=== PATIENT | female | born 1975 | race Caucasian/White ===

== ENCOUNTER 2021-11-03 12:24 | Emergency (ER) | payer BC, SELFPAY ==
--- NOTE | ~2021-11-03 | XR_ITS ---
EXAMINATION: XR chest 2V DATE: 11/03/2021 13:23 INDICATION: Left chest pain. TECHNIQUE: Frontal and lateral views of the chest were obtained. COMPARISON: None. FINDINGS: The chest demonstrates clear lungs without pneumonia, pleural effusion, or pneumothorax. Th e heart size is normal. Breast implants are noted. IMPRESSION: 1. No acute cardiopulmonary disease. Reviewed, dictated and finalized at location B.
[2021-11-03 12:46] VITALS: BP 125/89; PULSE 73; RESP 18; TEMP 36.8; O2SAT 100
--- NOTE | 2021-11-03 12:50 | ECG_ITS ---
Measurements Intervals [place] Rate: 70 P: 52 [place]: 137 QRS: 50 QRSD: 71 T: 51 QT: 383 QTc: 414 Interpretive Statements SINUS RHYTHM WITH SINUS ARRHYTHMIA BASELINE ARTIFACT POOR R-WAVE PROGRESSION BORDERLINE ECG NO PREVIOUS ECG AVAILABLE FOR COMPARISON Electronically Signed On 11-03-2021 15:01:34 CDT by Fredrick Noe M.D.
[2021-11-03 13:01] VITALS: BP 125/97; PULSE 73; RESP 17; O2SAT 100
[2021-11-03 13:16] LABS: Basophils Percent Auto 0.3 % (0.2-1.2); Eosinophils Percent Auto 0.5 % (0-4.4); Hematocrit 35.9 % (37.0-47.0); Hemoglobin 11.4 g/dL (12.0-15.0); Immature Granulocyte Absolute 0.01 K/mm3 (0.00-0.031); Immature Granulocyte Percent A 0.1 % (0-0.5); Lymphocytes Percent Auto 28.4 % (18.3-44.2); Mean Corpuscular HGB Conc 31.8 g/dl (32-36); Mean Corpuscular Hemoglobin 31.8 pg (26-34); Mean Platelet Volume 9.3 fl (7.4-10.4); Monocytes Absolute Auto 0.6 K/mm3 (0.1-0.6); Monocytes Percent Auto 7.5 % (2.6-8.5); Neutrophils Absolute Auto 4.9 K/mm3 (1.3-6.7); Neutrophils Percent Auto 63.2 % (45.5-73.1); Platelet Count Result 317 k/mm3 (150-375); Red Blood Count 3.59 M/mm3 (4.2-5.4); Red Cell Distribution Width 12.3 % (11.5-14.5); White Blood Count 7.8 K/mm3 (4.5-10.0)
[2021-11-03 13:27] LABS: Prothrombin Time 12.5 Seconds (11.1-14.7)
[2021-11-03 13:28] LABS: Alanine Aminotransferase 34 U/L (4-35); Albumin Level 4.4 g/dL (3.5-5.1); Alkaline Phosphatase 44 U/L (38-126); Anion Gap 7 mmol/L (8-16); Aspartate Amino Transferase 31 U/L (14-36); Bilirubin,Total 0.3 mg/dL (0.2-1.3); Blood Urea Nitrogen 13 mg/dL (7-17); Calcium 9.1 mg/dL (8.4-10.2); Carbon Dioxide 28 mmol/L (22-30); Chloride 102 mmol/L (98-107); Estimated Glomerular Filt Rate > 60; Glucose 86 mg/dL (65-110); Lipase 56 U/L (23-300); Partial Thromboplastin Time 26.2 SECONDS (22.3-36.8); Potassium 3.6 mmol/L (3.4-5.0); Sodium 137 mmol/L (137-145)
[2021-11-03 13:30] LABS: D Dimer 0.35 ug/mL (<0.48)
--- NOTE | 2021-11-03 13:32 | ED.CHESTPAIN ---
HPI - Chest Pain General Chief Complaint: Chest Pain Stated Complaint: chest tightness and dizziness Time Seen by Provider: 11/03/21 12:51 Source: patient History of Present Illness HPI narrative: Patient presents with chest pain and tightness. Reports she was recently diagnosed with COVID approximately 2 years ago she had repeat testing which was negative but she feels like she never really recovered. Reports she had diffuse body aches and shortness of breath. Her pain is more localized in her chest she continues to have some shortness of breath. She has neck pain joint pain and headaches. She like her symptoms are worsened over the past 5 days she is also reporting dizziness. She has been trying to manage her symptoms at home but feel like she is getting worse and her friend convinced her to go to the ER for further evaluation. Does report subjective fevers at home. Denies any nausea vomiting or diarrhea Related Data Home Medications Medication Instructions Recorded Confirmed epinephrine 0.3 mg/0.3 mL 0.3 mg IM ONCE 09/25/21 09/25/21 injection, auto-injector valacyclovir 500 mg tablet 500 mg PO DAILY 09/25/21 09/25/21 Allergies Allergy/AdvReac Type Severity Reaction Status Date / Time fluconazole [From Diflucan] Allergy Severe Blister Verified 09/25/21 09:33 azithromycin Allergy Intermediate rash Verified 09/25/21 09:33 hydroxyzine [From Vistaril] Allergy Intermediate Unknown Verified 09/25/21 09:33 Penicillins Allergy Intermediate Rash Verified 09/25/21 09:33 Sulfa (Sulfonamide Allergy Intermediate Rash Verified 09/25/21 09:33 Antibiotics) Review of Systems Review of Systems: CONSTITUTIONAL: Subjective fevers EYES: Denies visual changes, redness, or discharge. ENT: Denies rhinorrhea, congestion, sore throat, or otalgia. CARDIOVASCULAR: Denies palpitations, or edema. RESPIRATORY: Reports shortness of breath and cough GASTROINTESTINAL: Denies abdominal pain, nausea, vomiting, or diarrhea. GENITOURINARY: Denies dysuria or hematuria. SKIN: Denies rash or itching. MUSCULOSKELETAL: Denies joint pain, or myalgia. NEUROLOGIC: Denies headache, numbness, dizziness, or weakness. PSYCHIATRIC: Denies anxiety or depression. All systems reviewed & are unremarkable except as noted in HPI and below PMFSH Past Medical History Medical History Anxiety Depression Encounter for breast augmentation Surgical History Surgical History H/O: hysterectomy History of endometrial ablation History of tubal ligation Family History Family History Other Throat cancer Social History Social History Smoking status: Never smoker Alcohol intake: current Substance use: never Substance use type: does not use Gender identity (if verbalized by the patient): Female Sexual Orientation (if Verbalized by the Patient): Straight or Heterosexual Exam Narrative: GENERAL: Well-appearing, well-nourished, and in no acute distress. HEAD: Normocephalic, atraumatic. EYES: PERRLA and EOMI. ENT: Nares clear, no rhinorrhea or epistaxis. Mucous membranes moist. NECK: Supple. No masses. No JVD CHEST: Clear to auscultation. No respiratory distress. No wheezes rales or rhonchi HEART: Regular rate and rhythm. No murmur heard. Normal peripheral pulses. ABDOMEN: Soft, nontender, nondistended, normal active bowel sounds. EXTREMITIES: Normal range of motion. No edema. SKIN: Warm, dry, no rash. NEURO: No focal deficits. Alert and oriented x3. PSYCH: Normal mood and affect. Course Reevaluation(s) Reevaluation #1: Patient resting comfortably results and plan reviewed with patient. Patient is comfortable outpatient plan. Date: 11/03/21 Time: 15:07 Vital Signs Vital signs: Vital Signs Temperature 36.8 C 11/03/21 12:4
[2021-11-03 13:38] LABS: Troponin I < 0.012 ng/mL (0.000-0.034)
[2021-11-03] MEDS: KETOROLAC 15 MG/ML VIAL (*BKC) IV PUSH (13:48)
[2021-11-03] MEDS: SODIUM CHLORIDE 0.9% IV 1,000 ML 999 ML IV CONT (13:49)
[2021-11-03 14:38] LABS: SARS-CoV-2 RNA PCR Negative
== END 2021-11-03 15:33 | disposition home or self-care (01) ==
PROVIDERS: Emergency Provider Emergency Medicine; PCP Nurse Practitioner Family
DX: R07.89 Other chest pain (principal); R42 Dizziness and giddiness; M54.2 Cervicalgia; R51.9 Headache, unspecified; Z20.822 Contact with and (suspected) exposure to COVID-19; Z86.16 Personal history of COVID-19; R94.31 Abnormal electrocardiogram [ECG] [EKG]
CPT/HCPCS: 36415; 71046; 80053; 83690; 84484; 85025; 85380; 85610; 85730; 87804; 93005; 96361; 96374; 99284; C9803; J1885; J7030; U0003; U0005

== ENCOUNTER 2021-12-30 17:20 | Outpatient (CLI) | payer BC, SELFPAY ==
[2021-12-30 17:48] LABS: Appearance Urine Clear (Clear); Bilirubin Urine Negative (Negative); Color Urine Yellow (Yellow); Glucose Urine UA Negative (Negative); Ketones Urine Negative (Negative); Leukocyte Esterase Ur Negative LEU/UL (NEGATIVE); Nitrate Urine Negative (Negative); Protein Urine Negative (Negative); Specific Grav Ur 1.025 (1.001-1.035); Urobilinogen Urine 0.2 mg/dL (<2.0)
[2021-12-30 17:51] LABS: Add Urine Microscopic? YES; Blood Urine Trace-Intact (Negative)
[2021-12-30 17:53] LABS: Mucus Urine Rare /lpf; Squamous Epithelial Cell Urine Occasional /hpf (Few); WBC Urine 0-3 /hpf (0-3)
[2021-12-30 19:31] LABS: Thyroid Stimulating Hormone Reflex < 0.015 uIU/mL (0.465-4.68)
[2021-12-31 08:53] LABS: Total Triiodothyronine (T3) 1.17 NG/ML (0.97-1.69)
[2022-01-05 19:07] LABS: Estradiol, Ultrasensitive 47 pg/mL
[2022-01-05 20:34] LABS: FSH 12.5 mIU/mL (***); Progesterone 1.3 ng/mL (***)
== END 2021-12-30 17:21 | disposition home or self-care (01) ==
LOC: ANHLAB 17:26
PROVIDERS: PCP Nurse Practitioner Family; Visit Provider Obstetrics & Gynecology
DX: R35.0 Frequency of micturition (principal); R23.2 Flushing
CPT/HCPCS: 36415; 81001; 82670; 83001; 84144; 84439; 84443; 84480; 87086

== ENCOUNTER 2022-11-03 17:24 | Emergency (ER) | payer OTHER, SELFPAY ==
[2022-11-03 17:30] VITALS: BP 162/92; PULSE 90; RESP 15; TEMP 36.6; O2SAT 98
--- NOTE | 2022-11-03 17:58 | ED.FEMALEGU ---
HPI - Female Genitourinary General Chief complaint: Urogenital-Female Stated complaint: right flank pain, UTI Time Seen by Provider: 11/03/22 17:36 History of Present Illness HPI Narrative: 47-year-old female here for evaluation of dysuria, urgency and burning for the past 2 days. Patient states that she took some Azo over the past several days but her symptoms did not improve. She presented to an urgent care facility today who tested her urine and she was found to have protein and glucose in her urine and was referred to the ED. Patient denies history of diabetes or kidney disease. She is asymptomatic aside from the dysuria and denies any flank pain, fevers, chills, nausea or vomiting, abdominal pain or weakness. Related Data Home Medications Medication Instructions Recorded Confirmed epinephrine 0.3 mg/0.3 mL 0.3 mg IM ONCE 09/25/21 09/25/21 injection, auto-injector valacyclovir 500 mg tablet 500 mg PO DAILY 09/25/21 09/25/21 Allergies Allergy/AdvReac Type Severity Reaction Status Date / Time fluconazole [From Diflucan] Allergy Severe Blister Verified 11/03/22 17:39 azithromycin Allergy Intermediate rash Verified 11/03/22 17:39 hydroxyzine [From Vistaril] Allergy Intermediate Unknown Verified 11/03/22 17:39 Penicillins Allergy Intermediate Rash Verified 11/03/22 17:39 Sulfa (Sulfonamide Allergy Intermediate Rash Verified 11/03/22 17:39 Antibiotics) metronidazole Allergy Dizziness Verified 11/03/22 17:39 Review of Systems Review of Systems: Gen.: Denies fevers or chills Eyes: Denies eye pain or visual change ENT: Denies congestion Respiratory: Denies shortness of breath or cough CV: Denies chest pain or palpitations GI: Denies abdominal pain nausea, emesis or diarrhea reports dysuria urgency and frequency. Musculoskeletal: Denies back pain or muscle pain Neuro: Denies numbness, tingling, weakness or focal weakness Skin: Denies rash Except as documented, all other systems reviewed and negative [facility] Past Medical History Medical History Anxiety Depression Encounter for breast augmentation Surgical History Surgical History H/O: hysterectomy History of endometrial ablation History of tubal ligation Family History Family History Other Throat cancer Social History Social History Smoking status: Never smoker Alcohol intake: current Substance use: never Substance use type: does not use Living arrangements: with roommate(s) Occupation/Education: unemployed Gender identity (if verbalized by the patient): Female Sexual Orientation (if Verbalized by the Patient): Straight or Heterosexual Exam Narrative: APPEARANCE: Well appearing, no pain in distress, well-nourished. Head: Normocephalic and atraumatic. EYES: PERRLA/EOMI, conjunctivae clear NOSE: No nasal drainage EARS: External ear normal in appearance THROAT: Oropharynx is clear. Mucous membranes are moist. NECK: Supple. No adenopathy, no masses. RESPIRATORY: Airway patent, respirations nonlabored. Clear to auscultation bilaterally, no rales, rhonchi, wheezing. CARDIOVASCULAR: Regular rate and rhythm without murmurs, rubs, or gallops. ABDOMINAL: Normoactive bowel sounds. Soft, nontender, nondistended. No rebound tenderness or guarding. MUSCULOSKELETAL: Extremities are warm and well-perfused. Moves all extremities well. No edema. NEURO: Normal speech. No focal neurologic deficits. SKIN: Skin is warm and dry. No rashes. PSYCHIATRIC: Normal affect/mood.. Course Vital Signs Vital signs: Vital Signs Temperature 97.9 F 11/03/22 17:30 Pulse Rate 90 11/03/22 17:30 Respiratory Rate 15 11/03/22 17:30 Blood Pressure 162/92 H 11/03/22 17:30 Pulse Oximetry 98 11/03/22 17:30 Oxygen Delivery
[2022-11-03 18:02] LABS: Bacteria Urine None Seen /hpf; Need Manual Microscopic Reviewed; Non Pathogenic Casts 0-2; Squamous Epithelial Cell Urine Moderate /hpf (Few)
[2022-11-03 18:04] LABS: Basophils Percent Auto 0.4 % (0.2-1.2); Eosinophils Absolute Auto 0.2 K/mm3 (0-0.3); Eosinophils Percent Auto 1.9 % (0-4.4); Hematocrit 33.7 % (37.0-47.0); Immature Granulocyte Absolute 0.03 K/mm3 (0.00-0.031); Immature Granulocyte Percent A 0.3 % (0-0.5); Lymphocytes Absolute Auto 2.07 K/mm3 (0.9-3.2); Lymphocytes Percent Auto 19.2 % (18.3-44.2); Mean Corpuscular HGB Conc 32.6 g/dl (32-36); Mean Corpuscular Hemoglobin 32.8 pg (26-34); Mean Corpuscular Volume 100.6 fl (80-100); Mean Platelet Volume 9.3 fl (7.4-10.4); Monocytes Absolute Auto 1.2 K/mm3 (0.1-0.6); Monocytes Percent Auto 10.7 % (2.6-8.5); Neutrophils Absolute Auto 7.3 K/mm3 (1.3-6.7); Neutrophils Percent Auto 67.5 % (45.5-73.1); Platelet Count Result 310 k/mm3 (150-375); Red Blood Count 3.35 M/mm3 (4.2-5.4); Red Cell Distribution Width 12.4 % (11.5-14.5); White Blood Count 10.8 K/mm3 (4.5-10.0)
[2022-11-03 18:20] LABS: Appearance Urine Slightly Cloudy (Clear); Bilirubin Urine 1+ (Negative); Blood Urine 1+ (Negative); Color Urine Orange (Yellow); Glucose Urine UA Trace mg/dL (Negative); Ketones Urine Trace mg/dL (Negative); Leukocyte Esterase Ur 3+ LEU/UL (Negative); Nitrate Urine Positive (Negative); Protein Urine 2+ mg/dL (Negative); Specific Grav Ur <= 1.005 (1.001-1.035)
[2022-11-03 18:20] LABS: Alanine Aminotransferase 22 U/L (6-35); Albumin Level 4.4 g/dL (3.5-5.1); Alkaline Phosphatase 48 U/L (38-126); Anion Gap 5 mmol/L (8-16); Aspartate Amino Transferase 23 U/L (14-36); Bilirubin,Total 0.5 mg/dL (0.2-1.3); Blood Urea Nitrogen 12 mg/dL (7-17); Calcium 8.9 mg/dL (8.4-10.2); Carbon Dioxide 29 mmol/L (22-30); Chloride 104 mmol/L (98-107); Estimated CRCL calculation 83 ml/min; Estimated Glomerular Filt Rate > 60; Glucose 97 mg/dL (65-110); Potassium 3.9 mmol/L (3.4-5.0); Sodium 138 mmol/L (137-145)
[2022-11-03 18:26] LABS: Add Urine Microscopic? YES
[2022-11-03 18:56] VITALS: BP 136/74; PULSE 74; RESP 18; O2SAT 100
== END 2022-11-03 18:56 | disposition home or self-care (01) ==
PROVIDERS: Emergency Medicine; Emergency Provider Physician Assistant; PCP Nurse Practitioner Family
DX: N39.0 Urinary tract infection, site not specified (principal); Z90.710 Acquired absence of both cervix and uterus
CPT/HCPCS: 36415; 80053; 81001; 85025; 87086; 99283

== ENCOUNTER 2024-02-29 14:46 | Outpatient (CLI) | payer OTHER, SELFPAY ==
--- NOTE | ~2024-02-29 | XR_ITS ---
XR chest 2V 02/29/2024 15:53 Indication: Chest pain Procedure: 2 view chest Comparison: 11/03/2021 Findings: Borderline heart size. Lingular atelectasis/scarring. No focal air space disease, pulmonary edema, pleural effusion or suspected pneumothorax. Impression: 1: No acute cardiopulmonary disease. Reviewed, dictated and finalized at location B. Impression: 1: No acute cardiopulmonary disease.
--- NOTE | 2024-02-29 15:24 | ECG_ITS ---
Test Date: 2024-02-29 15:33:27 Measurements Intervals [place] Rate: 65 P: 43 [place]: 144 QRS: 34 QRSD: 74 T: 52 QT: 395 QTc: 412 Interpretive Statements SINUS RHYTHM No previous ECG available for comparison Electronically Signed On 03-01-2024 09:51:24 CDT by Abby Mcdonald M.D.
[2024-02-29 15:53] LABS: Creatine Kinase 83 U/L (30-135); Magnesium 1.9 mg/dL (1.6-2.3)
[2024-02-29 16:05] LABS: NT Pro B Type Natriuretic Pept 34 pg/mL (19.9-100); Troponin I < 0.012 ng/mL (0.000-0.034)
== END 2024-02-29 14:47 | disposition home or self-care (01) ==
LOC: ANHLAB 14:49
DX: R07.9 Chest pain, unspecified (principal)
CPT/HCPCS: 36415; 71046; 82550; 83735; 83880; 84484; 93005

== ENCOUNTER 2024-05-02 07:39 | Outpatient (CLI) | payer OTHER, SELFPAY | END 2024-05-02 07:40 | disposition home or self-care (01) | DX: R22.2 Localized swelling, mass and lump, trunk (principal) | CPT/HCPCS: 36415; 82533 ==

== ENCOUNTER 2025-04-30 09:31 | Outpatient (CLI) | payer OTHER, SELFPAY ==
--- OUTSIDE RECORDS SUMMARY | 2025-04-30 10:42 | XMS_ITS | Encounter Summary ---
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
--- OUTSIDE RECORDS SUMMARY | 2025-04-30 10:42 | XMS_ITS | Encounter Summary ---
Author Organization [facility] Address [address] [place] [address] Phone Care Team Providers Care Cultured Marble Products Maker Name Role Phone JulijairontenaMarkellbeny Mcclain COLLEGE INTERN Primary Care Provider Encounter Details Date Type Department Care Team (Latest Contact Info) Description 02/20/2024 Orders Only [facility] Scanning, Provider Social History Tobacco Use Types Packs/Day Years Used Date Smoking Tobacco: Never Passive Smoke Exposure: Never Smokeless Tobacco: Never AUDIT-C Answer Date Recorded Q1: How often do you have a drink containing alc ohol? 2-3 times a week 07/30/2021 Q2: How many drinks containi ng alcohol do you have on a typical day when you are drinking? 1 or 2 07/30/2021 Q3: How often do you have si x or more drinks on one occasion? Never 07/30/2021 PHQ-2 Answer Date Recorded PHQ-2 Total Score (If total score is 3 or more points, staff should administer the PHQ-9) 6 07/30/2021 Comments Unknown Sex and Gender Information Value Date Recorded Sex Assigned at Not on file Legal Sex Female 12:21 PM CDT Gender Identity Not on file Sexual Orientation Not on file documented as of this encounter Plan of Treatment Not on file documented as of this encounter Procedures Procedure Name Priority Date/Time Associated Diagnosis Comments SCAN - LABS 02/20/2024 documented in this encounter Results * SCAN - LABS (02/20/2024) us Provider Scanning Final Result documented in this encounter Visit Diagnoses Not on filedocumented in this encounter Care Teams Cultured Marble Products Maker Relationship Specialty Start Date End Date Maggie Joseph NP [address] [place] [address] PCP - General Nurse Practitioner 02/20/24 documented as of this encounter
--- OUTSIDE RECORDS SUMMARY | 2025-04-30 10:42 | XMS_ITS | Clinical Summary ---
Author Organization [facility] Care Team Providers Care Locomotive Electrician Name Role Phone Maggie Joseph EYEGLASS FRAMES POLISHER Primary Care Provider Allergies Active Allergy Reactions Criticality Noted Date Comments Clarithromycin Urticaria Medium 09/11/2019 Fluconazole Blisters High 02/20/2024 Metronidazole Vision changes Medium 02/20/2024 Penicillins Urticaria Medium 09/11/2019 Sulfa (Sulfonamide Antibiotics) Nausea & Vomiting Low 07/30/2021 Hydroxyzine Other (See comments) Low 07/30/2021 Coma as a child reportedly from [facility]. Medications valACYclovir (VALTREX) 500 mg tablet Take 1 tablet (500 mg total) by mouth 2 (two) times a day Active albuterol 2.5 mg /3 mL (0.083 %) nebulizer solutionIndicat ions:Chest congestion Take 3 mL (2.5 mg total) by nebulization 4 (four) times a day as needed for wheezing or shortness of breath 180 mL 3 Active Trulance 3 mg tablet 4 Active azelastine (ASTELIN) 137 mcg (0.1 %) nasal spray Administer 1 spray into each nostril 2 (two) times a day Use in each nostril as directed 30 mL 11 4 Active fluticasone propionate (FLONASE) 50 mcg/actuation nasal spray Administer 1 spray into each nostril daily 1 each 11 4 Active EPINEPHrine 0.3 mg/0.3 mL auto-injection syringeIndicati ons:Anaphylaxis Inject 0.3 mL (0.3 mg total) into the muscle as instructed as needed for anaphylaxis Call 911 after use. 2 each 3 4 Active busPIRone (BUSPAR) 10 mg tablet Take 1 tablet every 12 hours by oral route as needed for 30 days. 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 Fatigue 01/13/2022 Palpitations 01/13/2022 Shortness of breath 01/13/2022 Anxiety 01/12/2022 Asthma 01/12/2022 Chest pain, unspecified 01/12/2022 Dizziness and giddiness 01/12/2022 Hyperlipidemia 01/12/2022 Immunizations Immunization Administration Dates Next Due PPD TEST 07/30/2021 Surgical History Surgery Date Site/Laterality Comments AUGMENTATION MAMMAPLASTY 07/18/2001 - 07/17/2002 REDUCTION MAMMAPLASTY 07/18/2014 - 07/17/2015 HYSTERECTOMY 07/18/2017 - 07/17/2018 TUBAL LIGATION 07/18/2015 - 07/17/2016 Family History Medical History Relation Name Comments [place] Sister Relation Name Status Comments Sister Social History Tobacco Use Types Packs/Day Years Used Date Smoking Tobacco: Never Passive Smoke Exposure: Never Smokeless Tobacco: Never Tobacco Cessation:Counseling Given: Not Answered AUDIT-C Answer Date Recorded Q1: How often [...] on file Sexual Orientation Not on file Obstetrics History Last Filed Vital Signs Vital Sign Reading Time Taken Comments Blood Pressure 132/84 02/20/2024 12:58 PM CDT Pulse 83 02/20/2024 12:58 PM CDT Temperature 36.3 C (97.3 F) 02/20/2024 12:58 PM CDT Respiratory Rate 24 06/24/2023 3:57 PM CLINICAL INFORMATICS STRATEGIST Oxygen Saturation 98% 02/20/2024 12: 58 PM CDT Inhaled Oxygen Concentration - - Weight 56.6 kg (124 lb 12.8 oz) 024 12:58 PM CDT Height 144.8 cm (4' 9) 02/20/2024 12:5 8 PM CDT Body Mass Index 27.01 02/20/2024 12:58 PM CDT Plan of Treatment Health Maintenance Due Date Last Done Comments Breast Cancer Screening-Mammogram 1977 Colon Cancer Screening-Colonoscopy 1977 Hepatitis C Screening 1977 Hepatitis B Screening 1995 Regular Well Visit/Exam 18-64 1995 Pneumococcal vaccine <65 (1 of 2 - PCV) 1996 Depression Screening 07/30/2022 07/30/2021, 07/30/19 22 Covid-19 Vaccine (3 - 2024- season) 2025, 12/12/2020 Influenza Vaccine (#1) 2025 DTaP/Tdap/Td Vaccine (2 - Td or Tdap) 03/26/203003/2020 Insurance [facility] Care Teams Locomotive Electrician Relationship Specialty Start Date End Date Maggie Joseph NP [address] [facility] [place] [address] PCP - General Nurse Practitioner 02/20/24
--- OUTSIDE RECORDS SUMMARY | 2025-04-30 10:42 | XMS_ITS | Clinical Summary ---
Author Organization [facility] Address [address] [place] [address] Care Team Providers Care All Around Gear Machine Operator Name Role Phone Unavailable Primary Care Provider Unavailabl e Source Comments [facility],non-owned Affiliates and Associated Physician Practices is amultiple site organization consisting of ambulatory clinics and hospital sitesin [place], [place] and [place]. This disclosure is being madepursuant to the Care Everywhere program and may not contain all information available regarding this patient. Last updated 18.[facility] Allergies Active Allergy Reactions Criticality Noted Date Comments Clarithromycin Urticaria Medium 09/11/2019 Penicillins Urticaria Medium 09/11/2019 Medications * Be aware that medications may not be up to date on this document. Alwaysverify current medications with the patient. cyclobenzaprine (FLEXERIL) 10 MG tablet Take 1 tablet by mouth nightly as needed for Muscle Spasms 15 tablet 09/12/2019 Active ibuprofen (MOTRIN) 600 MG tablet Take 1 tablet by mouth every 6 hours as needed for Pain 20 tablet 09/12/2019 Active Social History Tobacco Use Types Packs/Day Years Used Date Smoking Tobacco: Never Assessed Comments Unknown Sex and Gender Information Value Date Recorded Sex Assigned at Not on file Legal Sex Female 10:16 PM MANAGER STATISTICAL PROGRAMMING Gender Identity Not on file Sexual Orientation Not on file Last Filed Vital Signs Vital Sign Reading Time Taken Comments Blood Pressure 138/88 09/12/2019 2:00 AM MANAGER STATISTICAL PROGRAMMING Pulse 102 09/12/2019 2:00 AM MANAGER STATISTICAL PROGRAMMING Temperature 37.1 C (98.8 F) 09/11/2019 10:17 PM MANAGER STATISTICAL PROGRAMMING Respiratory Rate 17 09/11/2019 10:29 PM MANAGER STATISTICAL PROGRAMMING Oxygen Saturation 99% 09/12/2019 2:00 AM MANAGER STATISTICAL PROGRAMMING Inhaled Oxygen Concentration - - Weight 54.4 kg (120 lb) 09/11/2019 10:17 PM MANAGER STATISTICAL PROGRAMMING Height 144.8 cm (4' 9) 09/11/2019 10:17 PM MANAGER STATISTICAL PROGRAMMING Body Mass Index 25.97 09/11/2019 10:17 PM MANAGER STATISTICAL PROGRAMMING Plan of Treatment Health Maintenance Due Date Last Done Comments COLOGUARD (AGES 45-75) - COL ON CA SCREENING 1977 COLON MONITORING 1977 COLONOSCOPY - COLON CA SCREENING 1977 CT COLONOGRAPHY - COLON CA SCREENING 1977 Colorectal Cancer Screening 1977 FIT - COLON CA SCREENING 1977 FLEX SIG - COLON CA SCREENING 1977 LIPID TESTING 1977 MAMMOGRAM 1977 HIV SCREENING 1992 HEPATITIS C SCREENING 03/29/1995 DTAP/TDAP/TD VACCINES (1 - Tdap) 1996 HEPATITIS B VACCINE (1 of 3 - 19+ 3-dose series) 1996 PAP SMEAR 1998 DEPRESSION SCREENING 07/18/2024 COVID-19 VACCINE (1 - 2023-2 5 season) 2025 INFLUENZA VACCINE (#1) 2025 ZOSTER VACCINE (1 of 2) 2027 HIB VACCINE Aged Out No longer eligi ble based on patient's age to complete this topic HPV VACCINE Aged Out No longer eligi ble based on patient's age to complete this topic MENINGOCOCCAL (Group B) VACC INE SHARED DECISION-MAKING Aged Out No longer eligibl e based on patient's age to complete this topic MENINGOCOCCAL GROUPS A/C/Y/W VACCINE Aged Out No longer eligible b ased on patient's age to complete this topic PNEUMOCOCCAL VACCINE Aged Out No long er eligible based on patient's age to complete this topic Insurance [facility]
--- OUTSIDE RECORDS SUMMARY | 2025-04-30 10:42 | XMS_ITS | Continuity of Care Document ---
Author Organization [facility] Address [facility] [place] [address] Care Team Providers Care On Site Manager Name Role Phone Unavailable Primary Care Provider Unavailabl e Encounters Date Type Department Care Team Description 10/01/2017 Abstract [facility] [address] [place] [address] Md Generic ConversionMD 05/04/2017 Orders Only [place] [address] Md Generic ConversionMD 05/04/2017 Orders Only [facility] CONVERSION [address] [facility] [address] Md Generic ConversionMD 05/04/2017 Orders Only [facility] [place] [address] Md Generic ConversionMD 05/04/2017 Orders Only [facility] [place] [address] Md Generic ConversionMD 05/04/2017 Orders Only [facility] CONVERSION ONE [facility] [address] Md Generic ConversionMD 05/04/2017 Orders Only [facility] [place] [address] Md Generic ConversionMD 05/04/2017 Emergency [facility] Emergency [address] [place] [address] 01/26/[address] 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 Gender Identity Not on file Sexual Orientation Not on file Plan of Treatment Not on file Procedures Procedure Name Priority Date/Time Associated Diagnosis Comments BNP STAT 05/04/2017 3:17 PM CDT TROPONIN, QUANT STAT 05/04/2017 3:17 PM CDT MAGNESIUM STAT 05/04/2017 3:17 PM CDT HEPATIC FUNCTION PANEL STAT 05/04/2017 3:17 PM CDT BASIC METABOLIC PANEL STAT 05/04/2017 3:17 PM CDT CBC W/DIFF AUTOMATED STAT 05/04/2017 3:17 PM CDT ECG 12-LEAD Routine 05/04/2017 3:06 PM CDT Results * BNP (05/04/2017 3:17 PM CDT) B TYPE NATRIURETIC PEPTIDE 30 0 - 100 PG/ML 05/04/2017 2:48 PM CDT [facility] WHOLE BLOOD SPECIMEN / Unknown 05/04/2017 3:17 PM CDT 05/04/2017 2:21 PM CDT us Generic Conversion Md [facility] Final R esult [facility] [address] [place] [address], [place] [phone] * BASIC METABOLIC PANEL (05/04/2017 3:17 PM CDT) SODIUM S/P/B 138 135 - 147 MMOL/L 05/04/2017 2:41 PM CDT [facility] POTASSIUM S/P/B 3.9 3.5 - 5.0 MMOL/L 05/04/2017 2:41 PM CDT [facility] CHLORIDE S/P/B 105 98 - 107 MMOL/L 05/04/2017 2:41 PM CDT [facility] CALCIUM S/P/B 9.4 8.4 - 10.2 MG/DL 05/04/2017 2:41 PM CDT [facility] CO2 26.6 22 - 29 MMOL/L 05/04/2017 2:41 PM CDT [facility] GLUCOSE 89 70 - 109 MG/DL 05/04/2017 2:41 PM CDT [facility] BUN 9 7 - 19 MG/DL 05/04/2017 2:41 PM CDT [facility] CREATININE S/P/B 0.71 0.60 - 1.10 MG/DL 05/04/2017 2:41 PM CDT [facility] OSMOLALITY (CALC) 274 05/04/2017 2:41 PM CDT [facility] ANION GAP 6 MMOL/L 05/04/2017 2:41 PM CDT [facility] PLASMA SPECIMEN / Unknown 05/04/2017 3:17 PM CDT 05/04/2017 2:21 PM CDT us Generic Conversion Md [facility] Final R esult [facility] [address] [place] [address], [place] [phone] * HEPATIC FUNCTION PANEL (05/04/2017 3:17 PM CDT) TOTAL PROTEIN S/P/B 6.7 6.0 - 8.3 G/DL 05/04/2017 2:45 PM CDT [facility] ALBUMIN S/P/B 3.9 3.4 - 4.9 G/DL 05/04/2017 2:45 PM CDT [facility] BILIRUBIN TOTAL S/P/B 0.6 0.2 - 1.2 MG/DL 05/04/2017 2:45 PM CDT [facility] BILIRUBIN DIRECT S/P/B 0.2 0.0 - 0.5 MG/DL 05/04/2017 2:45 PM CDT [facility] ALKALINE PHOSPHATASE S/P/B 37 37 - 98 U/L 05/04/2017 2:45 PM CDT [facility] AST 19 5 - 35 U/L 05/04/2017 2:45 PM CDT [facility] ALT 20 0 - 55 U/L 05/04/2017 2:45 PM CDT [facility] PLASMA SPECIMEN / Unknown 05/04/2017 3:17 PM CDT 05/04/2017 2:21 PM CDT us Generic Conversion Md [facility] Final R esult [facility] [address] [place] [address], [phone] * (ABNORMAL) CBC W/DIFF AUTOMATED (05/04/2017 3:17 PM CDT) WBC 6.9 4.0 - 10.8 x10'3/uL 05/04/2017 2:25 PM CDT [facility] RBC 3.38(L) 4.10 - 5.40 x10'6/uL 05/04/2017 2:25 PM CDT [facility] HGB 10.9(L) 12.0 - 16.0 G/DL 05/04/2017 2:25 PM CDT [facility] HCT 32.3(L) 36.0 - 47.0 % 05/04/2017 2:25 PM CDT [facility] MCV 95.6 78.0 - 100.0 FL 05/04/2017 2:25 PM CDT [facility] MCH 32.2(H) 27.0 - 31.0 PG 05/04/2017 2:25 PM CDT [facility] MCHC 33.7 33.0 - 36.0 G/DL 05/04/2017 2:25 PM CDT [facility] RDW 12.2 11.5 - 14.5 % 05/04/2017 2:25 PM CDT [facility] PLT 236 150 - 350 x10'3/uL 05/04/2017 2:25 PM CDT [facility] MPV 9.3 7.4 - 10.4 FL 05/04/2017 2:25 PM CDT [facility] ABS. NEUTROPHILS TOTAL 3.79 1.60 - 8.30 x10'3/uL 05/04/2017 2:25 PM CDT [facility] ABS. LYMPHOCYTES 2.25 0.80 - 4.70 x10'3/uL 05/04/2017 2:25 PM CDT [facility] ABS. MONOCYTES 0.69 0.00 - 1.50 x10'3/uL 05/04/2017 2:25 PM CDT [facility] ABS. EOSINOPHILS 0.08 0.00 - 0.40 x10'3/uL 05/04/2017 2:25 PM CDT [facility] ABS. BASOPHILS 0.03 0.00 - 0.20 x10'3/uL 05/04/2017 2:25 PM CDT [facility] ABS. IMMATURE GRANULOCYTES 0.02 0.00 - 0.03 x10'3/uL 05/04/2017 2:25 PM CDT [facility] ABS. NUCLEATED RBC'S 0.00 0.0 x10'3/uL 05/04/2017 2:25 PM CDT [facility] PLASMA SPECIMEN / Unknown 05/04/2017 3:17 PM CDT 05/04/2017 2:21 PM CDT us Generic Conversion Md [facility] Final R esclementina Performing Organization Address City/[facility]/ZIP Co de Phone Number [facility] [address] [place] [address], [phone] * TROPONIN, QUANT (05/04/2017 3:17 PM CDT) TROPONIN I 0.003 0.000 - 0.028 ng/mL. 05/04/2017 2:47 PM CDT [facility] SERUM OR PLASMA SPECIMEN / Unknown 05/04/2017 3:17 PM CDT 05/04/2017 2:21 PM CDT us Generic Conversion Md [facility] Final R chay Performing Organization Address [facility] Co de Phone Number [facility] [address] [place] [address], [place] [phone] * MAGNESIUM (05/04/2017 3:17 PM CDT) Pathologist [facility] MAGNESIUM 1.8 1.6 - 2.6 MG/DL 05/04/2017 2:45 PM CDT [facility] SERUM OR PLASMA SPECIMEN / Unknown 05/04/2017 3:17 PM CDT 05/04/2017 2:21 PM CDT us Generic Conversion Md [facility] Final R esclementina Performing Organization Address City/[facility] Co de Phone Number [facility] [address] [place] [address], [phone] * ECG 12 lead (05/04/2017 3:06 PM CDT) 05/04/2017 3:06 PM CDT Narrative [facility] - 05/04/2017 7:53 PM CDT [facility]-ED Test Date: 2017-05-04 Pat Name: MARIA LUZ LOUIS Department: 70 Room: Gender: Female 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1975 Requested By: PRICILA TOWNSEND Order Number: [id number] Reading MD: Bernabe Bajwa Measurements Intervals [place] Rate: 61 P: 34 AK: 142 QRS: 37 QRSD: 94 T: 43 QT: 394 QTc: 400 Interpretive Statements SINUS RHYTHM LOW QRS VOLTAGE IN PRECORDIAL LEADS [QRS DEFLECTION < 1.0 mV IN CHEST LEADS] Procedure Note Md Generic Conversion, - 03/12/2019 [facility]-ED Test Date: 2017-05-04 Pat Name: MARIA LUZ LOUIS Department: 70 Room: Gender: Female 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
--- OUTSIDE RECORDS SUMMARY | 2025-04-30 10:42 | XMS_ITS | Encounter Summary ---
Author Organization [facility] Address [address] [place] [address] Care Team Providers Care Senior Market Research Analyst Name Role Phone Unavailable Primary Care Provider Unavailabl e Encounter Details Date Type Department Care Team (Late st Contact Info) Description 10/09/2024 Lab Requisition [facility] - DermPath Lab [address] [place] [id number] Brianne Noe, DDS [address] [place] [address] Social History Tobacco Use Types Packs/Day Years Used Date Smoking Tobacco: Never Assessed Comments Unknown Sex and Gender Information Value Date Recorded Sex Assigned at Not on file 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 Gender Identity Not on file Sexual Orientation Not on file documented as of this encounter Plan of Treatment Not on file documented as of this encounter Procedures Procedure Name Priority Date/Time Associated Diagnosis Comments DERMATOPATHOLOGY Routine 10/04/2024 12:0 0 AM CDT documented in this encounter Results * DERMATOPATHOLOGY (10/04/2024 12:00 AM CDT) Case Report Dermatopathology Report Case: [id number] Authorizing Provider: Unknown, Provider Collected: 10/04/2024 12:00 AM Ordering Location: [facility] - Received: 10/09/2024 07:26 AM DermPath Lab Pathologist: Kei Felton DMD Specimen: Skin, right #8 region 3:11 PM CDT DERMATOPATHOLOGY LABORATORY Final Diagnosis Specimen A. MAXILLA, right #8 region: Odontogenic cyst, inflamed (See comment) (K04.8) 3:11 PM CDT DERMATOPATHOLOGY LABORATORY at 1511 CDT Clinical History A 49-year-old female patient presented with a non-healing periapical radiolucent in the #8 region after RCT. Imp: Periapical granuloma (yellow-colored mass - could be actinomyces). Op: Excisional biopsy. 3:11 PM CDT DERMATOPATHOLOGY LABORATORY Gross Description Specimen A: Received is one formalin filled container labeled with the patient's name and designated right #8 region. The specimen consists of an oral skin biopsy measuring 2 pieces 8x8x2,93r17y4 mm. Jar 0. 3:11 PM CDT DERMATOPATHOLOGY LABORATORY Microscopic Description Specimen A. MAXILLA, right #8 region: Sections reveal irregular fragments of soft tissue with a cyst lining consisting of nonkeratinized stratified squamous epithelium exhibiting a plexiform, interlacing pattern; spongiosis; and leukocyte exocytosis. The underlying connective tissue contains granulation-type tissue with numerous dilated and congested capillaries, extravasated hemorrhage, and a dense mixed acute and chronic inflammatory infiltrate consisting of numerous neutrophils, lymphocytes, plasma cells, and abundant foamy histiocytes. A very small fragment of keratin flakes is noted focally on the first section, but this is not present on deeper levels. 3:11 PM CDT DERMATOPATHOLOGY LABORATORY Comment The histopathologic features are suggestive of a radicular cyst with acute exacerbation. The small keratin fragment is favored to be incidental due to its focal nature and the fact it was not present on multiple deeper sections. However, odontogenic keratocysts lose their typical features in the setting of intense inflammation. Radiographic follow-up is recommended to assess for complete and proper healing. 3:11 PM CDT DERMATOPATHOLOGY LABORATORY Disclaimer An external and internal positive and negative controls are appropriate for the histochemical, immunohistochemical and immunofluorescence stain(s) in this case (if any), except where stated explicitly. The performance characteristics of the stain(s) cited in this report were developed and its performance characteristic determined by the Dermatopathology Laboratory at [facility], directed by Dr. Lori Soriano. These tests need not be, and therefore are not, approved by the [place] Food and Drug Administration. The tests are used for clinical purposes. Billing Codes Specimen Charges Stain Charges 17574 1 5 3:11 PM CDT DERMATOPATHOLOGY LABORATORY Embedded Images 3:11 PM CDT DERMATOPATHOLOGY LABORATORY Pathology/Cytolog y TISSUE SPECIMEN FROM SKIN / Unknown 10/04/2024 10/09/2024 7:26 AM CDT Brianne Noe DDS LAB - PATHOLOGY/CYTOLOGY O RDERABLES Final Result DERMATOPATHOLOGY LABORATORY [facility] - Department of Dermatology [facility] Medicine [address] [place] [address], [address] [phone] documented in this encounter Visit Diagnoses Not on filedocumented in this encounter
== END 2025-04-30 09:32 | disposition home or self-care (01) ==
LOC: ANHAUDIO 09:31
DX: H90.0 Conductive hearing loss, bilateral (principal); H93.13 Tinnitus, bilateral; H93.8X2 Other specified disorders of left ear; H92.02 Otalgia, left ear; R42 Dizziness and giddiness
CPT/HCPCS: 92557; 92567